=== PATIENT | male | born 1970 | race Caucasian/White ===

== ENCOUNTER 2016-08-24 02:24 | Emergency (ER) | payer OTHER ==
[2016-08-24 02:40] VITALS: BP 115/76; PULSE 80; TEMP 98.1; BMI 25.4
[2016-08-24] MEDS ORDERED: predniSONE 20 MG TABLET (UD) PO ONE (02:51)
[2016-08-24] MEDS ORDERED: diphenhydrAMINE HCL 25 MG CAPSULE (FP) PO ONE ×2 (02:51→02:52)
--- NOTE | 2016-08-24 02:51 | PDOC ---
[id number] 100 08/24/16 02:27 08/24/16 02:27 08/24/16 02:27 08/24/16 02:27 08/24/16 02:27 Medical Decision Making - Medical Decision Making 08/24/16 02:51 agree with care from [employer]PERVISOR Steve *DC/Admit/Observation/Transfer Diagnosis at time of Disposition: Allergic reaction - Discharge Dispostion Disposition: HOME Condition at time of disposition: Stable - Prescriptions Prescriptions: Diphenhydramine HCl [Benadryl -] 25 mg PO Q6H #28 capsule Prednisone [Deltasone -] 20 mg PO DAILY #7 tablet Famotidine [Pepcid -] 40 mg PO BID #14 tablet - Referrals Referrals: FriendPriyank [Primary Care Provider] - - Patient Instructions Printed Discharge Instructions: DI for General Allergic Reactions Additional Instructions: FOLLOW UP WITH DR[facility] CALL TO SCHEDULE APPOINTMENT. ADDRESS: [address] [place] [address], [address], [address], [place] [address]. TELEPHONE: [phone] TAKE MEDICATIONS PRESCRIBED. RETURN IF SYMPTOMS WORSEN OR ANY CONCERNS FOR FURTHER EVALUATION. Print Language: MALTESE
[2016-08-24] MEDS ORDERED: predniSONE 20 MG TABLET (UD) ONE (02:52)
--- NOTE | 2016-08-24 02:56 | PDOC ---
History of Present Illness - General Chief Complaint: Allergic Reaction Stated Complaint: ALLERGIC REACTION Time Seen by Provider: 08/24/16 02:33 History Source: Patient, Significant Other Exam Limitations: No Limitations - History of Present Illness Initial Comments: 08/24/16 02:52 46yo Male patient presents to ED via EMS c/o allergic reaction (hives, redness) . Patient states experiencing similar symptoms but this time symptoms prolonged and worsened. Symptoms have since improved in ED. He denies CP, Abd pain, n/v/d , fever, cough, congestion, back pain, or any other complaints at this time. Past History - Travel Traveled outside of the country in the last 30 days: No Close contact w/someone who was outside of country & ill: No - Past Medical History Allergies/Adverse Reactions: Allergies Allergy/AdvReac Type Severity Reaction Status Date / Time No Known Allergies Allergy Verified 08/24/16 02:27 Home Medications: Ambulatory Orders Diphenhydramine HCl [Benadryl -] 25 mg PO Q6H #28 capsule 08/24/16 Famotidine [Pepcid -] 40 mg PO BID #14 tablet 08/24/16 Prednisone [Deltasone -] 20 mg PO DAILY #7 tablet 08/24/16 Other medical history: denies - Surgical History Appendectomy: Yes - Psycho/Social/Smoking Cessation Hx Suicidal Ideation: No Smoking History: Unknown if ever smoked Hx Alcohol Use: No Drug/Substance Use Hx: No Review of Systems - Review of Systems Able to Perform ROS?: Yes Is the patient limited Turkish proficient: No Constitutional: No: Chills, Fever Respiratory: No: Cough, Shortness of Breath, Stridor, Wheezing Cardiac (ROS): No: Chest Pain, Edema, Lightheadedness, Palpitations, Syncope, Chest Tightness ABD/GI: No: Constipated, Diarrhea, Nausea, Poor Appetite, Poor Fluid Intake, Vomiting : No: Dysuria, Frequency, Hematuria Integumentary: Yes: Erythema, Pruritus, Rash, Other (Hives) All Other Systems: Reviewed and Negative *Physical Exam - Vital Signs Last Vital Signs Temp Pulse Resp BP Pulse Ox 98.1 F 80 18 115/76 100 08/24/16 02:27 08/24/16 02:27 08/24/16 02:27 08/24/16 02:27 08/24/16 02:27 - Physical Exam General Appearance: Yes: Nourished, Appropriately Dressed. No: Apparent Distress, Mild Distress, Moderate Distress, Severe Distress HEENT: positive: EOMI, ARNULFO, Normal ENT Inspection, Normal Voice, Symmetrical, TMs Normal, Pharynx Normal. negative: Pharyngeal Erythema, Tonsillar Exudate, Tonsillar Erythema, TM Bulging, TM Dull, TM Erythema Neck: positive: Trachea midline, Supple. negative: Stridor, Lymphadenopathy (R) , Lymphadenopathy (L) Respiratory/Chest: positive: Lungs Clear, Normal Breath Sounds. negative: Respiratory Distress, Accessory Muscle Use, Labored Respiration, Rapid RR Cardiovascular: positive: Regular Rhythm, Regular Rate. negative: Edema, JVD, Murmur Gastrointestinal/Abdominal: positive: Normal Bowel Sounds, Soft. negative: Increased Bowel Sounds, Distended, Guarding, Rebound, Tenderness Musculoskeletal: positive: Normal Inspection. negative: CVA Tenderness Extremity: positive: Normal Capillary Refill, Normal Inspection, Normal Range of Motion. negative: Pedal Edema, Swelling Integumentary: positive: Normal Color, Dry, Warm, Erythema. negative: Jaundice , Moist, Hives, Petechiae, Rash, Swelling, Ecchymosis, Bruising Neurologic: positive: nursing attendant II-XII NML intact, Fully Oriented, Alert, Normal Mood/ Affect, Normal Response, Motor Strength 5/5 *DC/Admit/Observation/Transfer Diagnosis at time of Disposition: Allergic reaction Qualifiers: Encounter type: initial encounter Qualified Code(s): T78.40XA - Allergy, unspecified, initial encounter - Discharge Dispostion Disposition: HOME Condition at time of disposition: Improved Admit: No - Prescriptions Prescriptions: Diphenhydramine HCl [Benadryl -] 25 mg PO Q6H #28 capsule Prednisone [Deltasone -] 20 mg PO DAILY #7 tablet Famotidine [Pepcid -] 40 mg PO BID #14 tablet - Patient Instructions Printed Discharge Instructions: DI for General Allergic Reactions Additional Instructions: FOLLOW UP WITH DR. [facility] AT [facility]. CALL TO SCHEDULE APPOINTMENT. ADDRESS: [address] [place] [address], [address], [address], [place] [address]. TELEPHONE: [phone] TAKE MEDICATIONS PRESCRIBED. RETURN IF SYMPTOMS WORSEN OR ANY CONCERNS FOR FURTHER EVALUATION. Print Language: KAZAKH
== END 2016-08-24 03:12 | disposition home or self-care (01) ==
LOC: JER 02:24
DX: L50.0 Allergic urticaria (principal); T78.40XA Allergy, unspecified, initial encounter
CPT/HCPCS: 99281-25